=== PATIENT | female | born 2000 | race Caucasian/White ===

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

== ENCOUNTER 2019-05-29 08:01 | Outpatient (CLI) | payer BC ==
--- NOTE | 2019-05-29 08:27 | ULT ---
I am: Transabdominal pelvic ultrasound HISTORY: Lower abdominal pain Comparison none TECHNIQUE: Transabdominal imaging of the pelvis is performed. Ovaries are interrogated with grayscale , color flow, Doppler imaging and spectral waveform analysis FINDINGS: Uterus is identified, without myometrial masses. Uterus measures 4.1 x 3.2 x 7.3 cm. Visualized endometrium measures 0.4 cm Bilateral ovaries have a normal echotexture. Right ovary measures 3.5 x 2.6 x 2.2 cm. Left ovary claudia sures 3.3 x 3.1 x 1.7 cm No free fluid Ovarian Doppler: Vascular flow to both ovaries IMPRESSION: Unremarkable pelvic ultrasound
== END 2019-05-29 08:02 | disposition home or self-care (01) ==
LOC: BICULT 08:01
PROVIDERS: ATTEND Physician Assistant
DX: R10.9 Unspecified abdominal pain (principal)
CPT/HCPCS: 76856; 93976